=== PATIENT | female | born 1995 | race Caucasian/White ===

== ENCOUNTER 2018-09-08 05:25 | Day surgery (SDC) | payer MEDICAID ==
[~2018-09-08] VITALS: Ht 157.5 cm; Wt 78.9 kg
[2018-09-08] MEDS ORDERED: LACTATED RINGERS 1,000 ML IV SCH (06:00)
[2018-09-08 06:12] LABS: UCG SCREEN NEGATIVE
[2018-09-08] MEDS ORDERED: IBUP-2271 PO (06:52)
[2018-09-08] MEDS ORDERED: BUPIVACAINE/EPINEPH/PF 0.25%/0.0005 10ML ONE (07:10)
[2018-09-08] MEDS ORDERED: MORPHINE SULFATE/PF 1MG/ML 10ML AMP ONE (07:10)
[2018-09-08] MEDS ORDERED: EPINEPHRINE 1:1000 1 MG/ML AMP ONE (07:11)
[2018-09-08] MEDS ORDERED: FENTANYL CITRATE/PF 50MCG/ML 2ML VIAL ONE ×2 (07:42→08:05)
[2018-09-08] MEDS ORDERED: ONDANSETRON HCL 4MG/2ML INJ ONE (07:42)
[2018-09-08] MEDS ORDERED: METOCLOPRAMIDE HCL 10MG/2ML VIAL ONE (07:42)
[2018-09-08] MEDS ORDERED: PROPOFOL 200MG/20ML VIAL IV ONE ×2 (07:42→08:05)
[2018-09-08] MEDS ORDERED: GLYCOPYRROLATE 0.2 MG/ML 2ML VIAL ONE (07:42)
[2018-09-08] MEDS ORDERED: SUCCINYLCHOLINE CHLORIDE 200MG/10ML IV ONE (07:42)
[2018-09-08] MEDS ORDERED: MIDAZOLAM HCL 2 MG/2 ML VIAL ONE (07:42)
[2018-09-08] MEDS ORDERED: LIDOCAINE HCL/PF 1% 10 MG/ML 5ML VIAL ONE (07:42)
[2018-09-08] MEDS ORDERED: BUPIVACAINE HCL/EPINEPHRINE 0.5%/0.0005 30ML ONE (08:25)
[2018-09-08] MEDS ORDERED: SODIUM CHLORIDE 0.9% 1,000 ML IV ONE (09:04)
[2018-09-08] MEDS ORDERED: MORPHINE SULFATE 2 MG/ML CPJ (NOT FOR IM USE) IV PRN (09:15)
[2018-09-08] MEDS ORDERED: MEPERIDINE HCL/PF 25MG/ML CPJ IV PRN ×2 (09:15)
[2018-09-08] MEDS ORDERED: HYDROMORPHONE HCL/PF 2MG/ML CPJ IV PRN (09:15)
[2018-09-08] MEDS ORDERED: ONDANSETRON HCL 4MG/2ML INJ IV PRN (09:15)
[2018-09-08] MEDS ORDERED: HYDROCODONE/ACETAMINOPHEN 10/325MG TABLET PO PRN (09:30)
== END 2018-09-08 11:20 | disposition home or self-care (01) ==
LOC: OR 05:25
PROVIDERS: ATTEND Orthopaedic Surgery
DX: M23.341 Other meniscus derangements, anterior horn of lateral meniscus, right knee (principal); M65.861 Other synovitis and tenosynovitis, right lower leg; M67.51 Plica syndrome, right knee; M94.261 Chondromalacia, right knee; E66.3 Overweight
CPT/HCPCS: 29876; 81025; 88304; 88311; 97116; 97161; J0171; J0330; J2250; J2274; J2405; J2704; J2765; J3010; J3490

== ENCOUNTER 2018-12-25 14:24 | Emergency (ER) | payer MEDICAID ==
[~2018-12-25] VITALS: Ht 157.5 cm; Wt 80.0 kg
[~2018-12-25 14:24] MED LIST: IBUP-2271 PO
[2018-12-25] MEDS ORDERED: KETOROLAC 60MG/2ML VIAL IM STA (16:21)
[2018-12-25 16:26] VITALS: BP 120/70
== END 2018-12-25 18:02 | disposition home or self-care (01) ==
LOC: ER 14:24
DX: M25.561 Pain in right knee (principal); M54.41 Lumbago with sciatica, right side
CPT/HCPCS: 73560; 81025; 96372; 99283; J1885

== ENCOUNTER 2018-12-27 08:14 | Emergency (ER) | payer MEDICAID ==
[~2018-12-27] VITALS: Ht 157.5 cm; Wt 80.0 kg
[2018-12-27] MEDS ORDERED: ACETAMINOPHEN WITH CODEINE 300/30MG TABLET PO ONE (11:00)
[2018-12-27 13:08] VITALS: BP 121/76
== END 2018-12-27 13:10 | disposition home or self-care (01) ==
LOC: ER 08:25
DX: M25.551 Pain in right hip (principal); M25.569 Pain in unspecified knee; M79.18 Myalgia, other site; Z98.890 Other specified postprocedural states
CPT/HCPCS: 73502; 99283

== ENCOUNTER 2019-09-10 01:27 | Emergency (ER) | payer MEDICAID, OTHER ==
[~2019-09-10] VITALS: Ht 157.5 cm; Wt 82.0 kg
[~2019-09-10 01:27] MED LIST changes: -IBUP-2271 PO; +IBUP-2741 PO
[2019-09-10] MEDS ORDERED: KETOROLAC 60MG/2ML VIAL IM STA (02:28)
[2019-09-10] MEDS ORDERED: ONDANSETRON 4MG ODT PO STA (02:28)
[2019-09-10 02:50] LABS: BASOPHILS % 0.6 % (0.0-2.0); EOSINOPHILS % 3.1 % (0.0-5.0); HEMOGLOBIN. 14.3 g/dL (12.0-16.0); LYMPHOCYTES % 42.6 % (20.0-50.0); MEAN CORPUSCULAR VOLUME 77.6 fL (81.0-99.0); MEAN PLATELET VOLUME 7.2 fl (7.4-10.4); MONOCYTES % 8.2 % (2.0-8.0); NEUTROPHILS % 45.5 % (40.0-76.0); PLATELET 338 x1000/uL (130-400); RED BLOOD CELL COUNT 5.28 mill/uL (4.2-5.4)
[2019-09-10 02:57] LABS: CHLORIDE 105 mEq/L (98-107)
[2019-09-10 04:00] LABS: CLARITY URINE CLEAR (CLEAR); COLOR URINE YELLOW (YELLOW); KETONES URINE NEGATIVE (NEGATIVE); LEUKOCYTE ESTERASE URINE NEGATIVE (NEGATIVE); NITRITE URINE NEGATIVE (NEGATIVE); OCCULT BLOOD URINE 3+ (NEGATIVE); PH URINE 5.5 (4.5-8.0); PROTEIN URINE NEGATIVE (NEGATIVE); SPECIFIC GRAVITY URINE 1.023 (1.005-1.030); UROBILINOGEN URINE 0.2 E.U./dL (0.2-1.0)
[2019-09-10] MEDS ORDERED: HYDROCODONE/ACETAMINOPHEN 5/325MG TABLET PO ONE (04:45)
[2019-09-10 05:07] VITALS: BP 131/71
== END 2019-09-10 05:08 | disposition home or self-care (01) ==
LOC: ER 01:27
DX: R10.9 Unspecified abdominal pain (principal)
CPT/HCPCS: 36415; 74176; 76830; 76856; 80053; 81003; 81025; 83690; 85025; 93976; 96372; 99285; J1885; Q0162